=== PATIENT | male | born 1970 | race Caucasian/White ===

== ENCOUNTER 2018-03-21 06:33 | Emergency (ER) | payer OTHER ==
[~2018-03-21] VITALS: Ht 182.9 cm; Wt 145.5 kg
[2018-03-21 06:39] VITALS: BP 105/66; TEMP 99
[2018-03-21] MEDS ORDERED: PRINZIDE 25 MG-1 TAB PO (06:53)
[2018-03-21] MEDS ORDERED: OMEGA-3 1000 MG1 CAP PO (06:53)
[2018-03-21 08:16] VITALS: PULSE 84
== END 2018-03-21 08:17 | disposition home or self-care (01) ==
LOC: COL.ER 06:33
DX: S80.11XA Contusion of right lower leg, initial encounter (principal); I10 Essential (primary) hypertension; W01.0XXA Fall on same level from slipping, tripping and stumbling without subsequent striking against object, initial encounter; Y92.009 Unspecified place in unspecified non-institutional (private) residence as the place of occurrence of the external cause

== ENCOUNTER 2023-08-06 08:08 | Day surgery (SDC) | payer OTHER ==
[~2023-08-06] VITALS: Ht 177.8 cm; Wt 164.7 kg
[~2023-08-06 08:08] MED LIST: LR 1,000 ML IV SCH; OMEGA-3 1000 MG1 CAP PO; Ondansetron 4 MG/2 ML VIAL IV PRN; PRINZIDE 25 MG-1 TAB PO
[2023-08-06 08:50] VITALS: BP 151/85; PULSE 68; TEMP 98.1
[2023-08-06] MEDS ORDERED: GLUCOPHAGE XR500 M1 PO (09:00)
[2023-08-06] MEDS ORDERED: ASPIRIN 81M81 MG/TA2 PO (09:00)
[2023-08-06] MEDS ORDERED: CRESTOR5 MG PO (09:00)
[2023-08-06] MEDS ORDERED: ADVIL200 MG PO (09:01)
[2023-08-06] MEDS ORDERED: [UNRECOGNIZED DRUG - OTHER] PO (09:01)
[2023-08-06] MEDS ORDERED: BENICAR5 MG PO (09:02)
[2023-08-06] MEDS ORDERED: [UNRECOGNIZED DRUG - OTHER] (09:02)
[2023-08-06] MEDS ORDERED: Lidocaine PF 2% (20 MG/ML) 5 ML VIAL ONE (09:56)
[2023-08-06 10:35] VITALS: BP 128/90; PULSE 71; TEMP 97.3
[2023-08-06 10:50] VITALS: BP 137/84; PULSE 78
--- NOTE | 2023-08-06 17:35 | NUR ---
[id number]: PT TO ENDO REC[facility]ERY B[facility] FROM [facility] S/P COLONOSCOPY W/ POLYPECTOMY A&O, PLACED ON MONITOR, VSS ON RA RECEIVED REPORT AND ASSUMED CARE OF PT FROM ENDO RN PLAN TO CALL FAMILY FOR RIDE HOME WHEN READY FOR DC PROVIDED FOOD/FLUIDS, TOLERATING WELL MD IN TO SEE PT POST-PROCEDURE PT HAS REMAINED A&O, NAD, VSS ON RA, TOLERATING PO, IS WITHOUT SIGNIFICANT COMPLAINT, WITH SAFE GAIT THRU OUT STAY IV D/C'D. D/C INSTRUCTIONS, ANY FOLLOW UP REVIEWED AND HANDED TO PT. ALL QUESTIONS AND CONCERNS ADDRESSED TO PT SATISFACTION. TAKEN TO EXIT VIA W/C WITH ALL BELONGINGS AND PAPERWORK IN HAND, ASSISTED INTO PASSENGER SEAT OF POV. FAMILY TO DRIVE HOME.
== END 2023-08-06 11:10 | disposition home or self-care (01) ==
LOC: SDCO 08:08
DX: Z12.11 Encounter for screening for malignant neoplasm of colon (principal); D12.8 Benign neoplasm of rectum; K57.30 Diverticulosis of large intestine without perforation or abscess without bleeding; E66.01 Morbid (severe) obesity due to excess calories; Z68.43 Body mass index [BMI] 50.0-59.9, adult; Z87.891 Personal history of nicotine dependence
CPT/HCPCS: J2704; J7120